=== PATIENT | female | born 1980 | race Caucasian/White ===

== ENCOUNTER 2018-02-21 10:01 | Emergency (ER) | payer SELFPAY ==
[~2018-02-21] VITALS: Ht 175.3 cm; Wt 91.2 kg
[~2018-02-21 10:01] MED LIST: ALPR0.5T PO; ASPI-630 PO; ATOR10TA60 PO; CANA300T PO; HYDR-2679 PO; INSU200I SQ; LINA1TAB5 PO; LOSA50TA7 PO
[2018-02-21 10:09] VITALS: BP 157/92
--- NOTE | 2018-02-21 11:07 | RAD ---
Right hand, 3 views, 02/21/2018: HISTORY: Fall, pain and bruising No fracture or dislocation is identified. The soft tissues are unremarkable. IMPRESSION: No acute right hand abnormality is detected. Right wrist, 3 views, 02/21/2018: There is deformity of the distal ulnar shaft compatible with an old healed fracture. No acute fracture or dislocation is identified. The soft tissues are unremarkable. IMPRESSION: No acute right wrist abnormality is detected. Electronically signed by: Misha Granados MD (02/21/2018 11:04 AM) [facility]
--- NOTE | 2018-02-21 11:08 | RAD ---
Right forearm, 2 views, 02/21/2018: HISTORY: Fall, pain No acute fracture or bony abnormality is detected. There is an old healed distal ulnar shaft fracture. IMPRESSION: No acute bony abnormality is detected. Electronically signed by: Misha Granados MD (02/21/2018 11:04 AM) [facility]
[2018-02-21] MEDS ORDERED: IBUP-1060 PO (11:52)
--- NOTE | 2018-02-21 11:59 | PHYS DOC ---
Past Medical History Past Medical History: Diabetes-Type II, High Cholesterol Past Surgical History: Tonsillectomy Alcohol Use: Occasionally Drug Use: Marijuana Adult General Chief Complaint Chief Complaint: HAND PROBLEM HPI HPI Patient is a 37 year old female who presents with fall. Patient was in the shower is morning when she had a mechanical fall. She landed hard on the right wrist and also states she struck the bridge of her nose. She did not have loss of consciousness. She presents to the ER complaining of pain in those areas. No nausea or vomiting. No vision changes. Review of Systems Review of Systems Constitutional: Denies fever Eyes: Denies change in visual acuity HENT: Denies nasal congestion Respiratory: Denies cough or shortness of breath Cardiovascular: No additional information not addressed in HPI Musculoskeletal: Denies back pain Integument: Denies rash or skin lesions All other systems were reviewed and found to be within normal limits, except as documented in this note. Allergies Allergies Allergies Coded Allergies Type Severity Reaction Last Updated Verified No Known Drug Allergies 02/24/14 No Physical Exam Physical Exam Constitutional: Well developed, well nourished, no acute distress, non-toxic appearance HENT: Normocephalic, very mild swelling about the bridge of the nose, bilateral external ears normal, oropharynx moist Eyes: PERRLA, EOMI Neck: Normal range of motion, no tenderness Cardiovascular:Heart rate regular rhythm Lungs & Thorax: Bilateral breath sounds clear to auscultation Abdomen: Bowel sounds normal, soft, no tenderness, no masses, no pulsatile masses. [] Skin: Warm, dry, no erythema, no rash. [] Back: No tenderness, no CVA tenderness. [] Extremities: No tenderness, no cyanosis, no clubbing, ROM intact, no edema. [] Neurologic: Alert and oriented X 3, normal motor function, normal sensory function, no focal deficits noted. [] Psychologic: Affect normal, judgement normal, mood normal. [] Current Patient Data Vital Signs Vital Signs Date Time Temp Pulse Resp B/P (MAP) Pulse Ox O2 Delivery O2 Flow Rate FiO2 02/21/18 10:09 98.1 77 18 157/92 (113) 98 Room Air 98.1 EKG EKG [] Radiology/Procedures Radiology/Procedures [] Course & Med Decision Making Course & Med Decision Making Pertinent Labs and Imaging studies reviewed. (See chart for details) Patient was evaluated in the emergency department after a traumatic injury to the right hand and wrist. X-rays did not reveal any acute new fractures although she did have a prior old fracture. Her physical exam of the hand is otherwise unremarkable. There was a small amount of ecchymosis on the right small finger but brisk capillary refill and sensation to light touch was intact in all dermatomes. The patient had a lot of apprehension due to comfort. For this reason, she was placed in a splint. She was advised to wear for the next 5 days or until her pain is improved. She was discharged home with ibuprofen and encouraged to follow-up with her primary care doctor. The patient did strike her nose when she fell. She had some concerns about a possible nasal fracture. On physical exam, she had no septal hematoma. Patient was recommended to follow up again with her primary care doctor and use [id number] decongestants as needed. Dragon Disclaimer Dragon Disclaimer This electronic medical record was generated, in whole or in part, using a voice recognition dictation system. Departure Departure Impression: Primary Impression: Contusion of wrist, right Disposition: 01 HOME, SELF-CARE Condition: GOOD Patient Instructions: Contusion, [id number] Scripts Ibuprofen (IBUPROFEN) 800 Mg Tablet 800 MG PO PRN TID PRN for PAIN, #30 TAB take with food or milk to avoid upsetting stomach Prov: AMINATA WOOTEN DO 02/21/18 AMINATA WOOTEN DO Feb 21, 2018 11:59
== END 2018-02-21 12:15 | disposition home or self-care (01) ==
LOC: ER 10:01
DX: S60.211A Contusion of right wrist, initial encounter (principal); E11.9 Type 2 diabetes mellitus without complications; E78.00 Pure hypercholesterolemia, unspecified; Z90.89 Acquired absence of other organs; W18.30XA Fall on same level, unspecified, initial encounter; Y93.89 Activity, other specified; Y92.89 Other specified places as the place of occurrence of the external cause; Y99.8 Other external cause status
CPT/HCPCS: 29125; 73090; 73110; 73130; 99284

== ENCOUNTER 2019-11-27 12:17 | Emergency (ER) | payer OTHER ==
[~2019-11-27 12:17] MED LIST changes: +IBUP-1060 PO; +LOSA-73 PO; -LOSA50TA7 PO
[2019-11-27] MEDS ORDERED: METF100010 PO (16:12)
[2019-11-29] MEDS ORDERED: CEPH-264 PO (08:49)
== END 2019-11-27 13:46 | disposition left against medical advice (07) ==
LOC: ER 12:17
DX: R10.9 Unspecified abdominal pain (principal); R50.9 Fever, unspecified; R05 Cough; Z53.21 Procedure and treatment not carried out due to patient leaving prior to being seen by health care provider
CPT/HCPCS: 82962

== ENCOUNTER 2019-11-27 13:46 | Inpatient (IN) | payer OTHER ==
[~2019-11-27] VITALS: Ht 175.3 cm; Wt 95.5 kg
[2019-11-27] MEDS: IV NORMAL SALINE 1000ML BAG 1,000 ML IV SCH (14:30)
[2019-11-27] MEDS ORDERED: HYDROcodone/APAP 5/325MG 1 TAB TABLET PO PRN (14:45)
[2019-11-27 15:00] VITALS: BP 171/74
--- NOTE | 2019-11-27 15:13 | PDOC2 ---
GI CONSULT Date of Service: DATE: 11/27/19 TIME: 14:59 Reason For Consult: abd pain HPI: HPI: 39 y/o female directly admitted. Ill since Tuesday with a variety of symptoms including night sweats, fever (says 99.4 at home), upper abdominal pain (constant "like a bruising" - awoke from sleep a couple nights ago, no change w/ eating) sometimes wrapping to back, occasional LLQ pain (occurs randomly, no change w/ stooling), less frequent/smaller soft stools, brain fog, and flushing. Was seen at [facility] at the [facility] and told blood work and CT of abdomen were unremarkable. Typically no issues w/ reflux but has been having some indigestion over the past couple days. Denies dysphagia, n/v, diarrhea, constipation, hematochezia, melena, and weight loss. No previous EGD or colonoscopy. H/o fatty liver on past US. No GB, pancreas, or PUD history. H/o arthritis and migraines on PRN hydrocodone, ibuprofen, and ASA. Has "some type of autoimmune disease" but testing inconclusive. Mentions RA, also mentions mother and sister have lupus. PMH: PMH: suspected autoimmune disease, anxiety, HLD, DM, migraines FH: Family History: CAD, CVA, Other (mother and sister have lupus) Social History: Smoke: Quit ALCOHOL: occassional ROS: GEN: +fever +chills HEENT: Denies blurred vision, sore throat CV: +chest pain RESP: +shortness of breath GI: Per HPI : Denies hematuria, dysuria ENDO: Denies weight changes NEURO: Denies confusion, dizziness MSK: +arthritis pain SKIN: Denies jaundice, pruritus Vitals: Vitals: Please see EMR - nurse reports afebrile. Labs: Labs: Pending. Allergies: Coded Allergies: No Known Drug Allergies (Unverified , 02/24/14) PE: GEN: NAD - sitting on bed, talking w/ mother on facetime, eating chicken and green beans HEENT: Atraumatic, PERRL LUNGS: CTAB HEART: RRR ABD: NABS, S/ND, does not seem particularly tender - perhaps mildly in epigastrium EXTREMITY: No edema SKIN: cheeks erythematous NEURO/PSYCH: A & O 3 A/P: A/P: Fever/sweats/flushing, abd pain, heartburn, change in bowel habits H/o fatty liver H/o migraines and arthritis R/o COVID-19 -- Await labs. ?need for IV antibiotics Check abd US r/o GB issue. Start PPI. DL LYLES Nov 27, 2019 15:13
[2019-11-27] MEDS: HYDROcodone/APAP 5/325MG 1 TAB TABLET PO PRN ×2 (15:15→21:58)
[2019-11-27] MEDS: CIPROFLOXACIN 400MG PREMIX 200 ML IV SCH (15:15)
--- NOTE | 2019-11-27 15:49 | RAD ---
Single view of the chest. 11/27/2019 2:24 PM Indication: Reason: PUI, FEVER, CHILLS / Spl. Instructions: / History: Comparison: Chest radiograph January 2016 Findings: There is no focal consolidation. There is no pleural effusion or pneumothorax. The cardiomediastinal silhouette and pulmonary vasculature are within normal limits. No acute osseous abnormalities are seen. Impression: No evidence of acute cardiopulmonary process. Electronically signed by: Pedro Clement MD (11/27/2019 3:47 PM) [id number]
[2019-11-27 15:56] LABS: BASO # 0.1 x10^3/uL (0.0-0.2); BASO % 1 % (0-3); EOS # 0.1 x10^3/uL (0.0-0.7); EOS % 1 % (0-3); HEMATOCRIT 42.7 % (36.0-47.0); LYMPH # 2.8 x10^3/uL (1.0-4.8); LYMPH % 28 % (24-48); MEAN CORPUSCULAR HEMOGLOBIN 33 pg (25-35); MEAN CORPUSCULAR HGB CONC 35 g/dL (31-37); MEAN CORPUSCULAR VOLUME 95 fL (79-100); MONO # 0.5 x10^3/uL (0.0-1.1); MONO % 5 % (0-9); NEUT # 6.4 x10^3/uL (1.8-7.7); NEUT % 65 % (31-73); PLATELET COUNT 255 x10^3/uL (140-400); RED BLOOD COUNT 4.49 x10^6/uL (3.50-5.40); RED CELL DISTRIBUTION WIDTH 12.1 % (11.5-14.5); WHITE BLOOD COUNT 9.9 x10^3/uL (4.0-11.0)
[2019-11-27 15:59] LABS: CALCIUM 8.9 mg/dL (8.5-10.1); CREATININE 0.7 mg/dL (0.6-1.0); GFR 93.6; POTASSIUM 3.9 mmol/L (3.5-5.1)
[2019-11-27 16:04] LABS: ALBUMIN/GLOBULIN RATIO 1.1 (1.0-1.7); TOTAL BILIRUBIN 0.4 mg/dL (0.2-1.0); TOTAL PROTEIN 7.6 g/dL (6.4-8.2)
[2019-11-27] MEDS ORDERED: METF100010 PO (16:12)
[2019-11-27] MEDS ORDERED: ALPRAZolam 0.5 MG TABLET PO PRN (16:15)
[2019-11-27] MEDS ORDERED: IBUPROFEN 400 MG TABLET. PO PRN (16:30)
[2019-11-27] MEDS: metFORMIN 500 MG TABLET PO SCH (17:00)
--- NOTE | 2019-11-27 17:17 | PDOC ---
Provider Note Provider Note H&P dictated.#[id number].Pt seen in the office and admitted. Justicifation of Admission Dx: Justifications for Admission: Justification of Admission Dx: Yes Sepsis: Infection BALTA SCHMITT MD Nov 27, 2019 17:17
--- NOTE | 2019-11-27 18:30 | EKG ---
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
--- NOTE | 2019-11-27 18:54 | HP ---
ADMIT DATE: 11/27/2019 REASON FOR ADMISSION TO THE HOSPITAL: Fever, chills, abdominal pain, possible COVID infection. HISTORY OF PRESENT ILLNESS: The patient is a 39-year-old female patient known to me. She has a history of diabetes, hypertension, migraines, and she was not feeling well for the last 2-3 days, night sweats, fever, abdominal pain, cramping and variety of symptoms including flushing brain fog as well as decreased stools. The patient went to the [facility] Emergency Room at the [facility]. Yesterday, had a CT scan and blood test and it was told unremarkable. I do not have the results with me. She did not bring the results, could not access the results. The patient was seen in the office today and she has been shivering and with chills badly it was decided to admit to the hospital for further investigations. The patient was very tender in the abdomen and possible diverticulitis was another differential diagnosis PAST MEDICAL HISTORY: Has diabetes, proteinuria, migraine headaches, anxiety. FAMILY HISTORY: Positive for lupus in the sister. Mom had sudden cardiac event, but she survived, she has a defibrillator. Strokes, diabetes in grandparents. ALLERGIES: No known allergies. SOCIAL HISTORY: Quit smoking, social alcohol. Denies any street drugs. REVIEW OF SYSTEMS: Fever, chills, abdominal pain, shortness of breath, and problems with diarrhea and constipation. Rest of the 14-system was reviewed and negative. PHYSICAL EXAMINATION: VITAL SIGNS: At the time of admission shows a temperature 98, pulse 69, respirations 18, blood pressure 171/74, 98 on room air. HEENT: Head is atraumatic. Pupils equal. Oral cavity: No congestion. NECK: Supple. Thyroid not enlarged. JVD not elevated. CHEST: Symmetrical. CARDIOVASCULAR: S1, S2. LUNGS: Clear to auscultation. ABDOMEN: Soft, bowel sounds are present. Slight tender in the left lower quadrant to deep palpation. No rebound. Bowel sounds are present. EXTERNAL GENITALIA: No Cerna. RECTAL: Deferred. EXTREMITIES: No calf tenderness, no edema. Pulses 1+. NEUROLOGIC: Moving all extremities. LABORATORY DATA: Shows a white count 10, hemoglobin 15, platelets 255. Electrolytes of sodium 139, potassium 3.9, chloride 101, bicarbonate 29, anion gap 9, BUN 13, creatinine 0.7, glucose 181. LFTs, amylase and lipase was normal. Urine is pending. Chest x-ray negative. The patient had a CT scan of the abdomen at [facility] Emergency Room. We will try to get the report, reported negative. FINAL IMPRESSION: 1. Chills with fever. 2. Possible suspect COVID. 3. Abdominal pain, possible diverticulitis. 4. Diabetes. 5. Hypertension. 6. History of migraines. PLAN: At this time, admit to hospital, hydrate with IV fluids. Blood culture. Start on broad-spectrum antibiotic, Cipro and Flagyl for possible diverticulitis and further recommendation for a GI consult, ID consult. If next 24 hours, does not look like any bacterial infection, we can discontinue the antibiotics. COVID-19 test was done. BALTA SCHMITT MD DR: GET/thong JOB#: [id number] / [id number]
[2019-11-27 19:00] VITALS: BP 166/80
[2019-11-27 19:38] LABS: BILIRUBIN,URINE NEGATIVE (NEG); CLARITY,URINE CLEAR; COLOR,URINE YELLOW; NITRITE,URINE NEGATIVE (NEG); PH,URINE 7.5 (<5.0-8.0); PROTEIN,URINE NEGATIVE (NEG-TRACE)
[2019-11-27 19:45] LABS: BACTERIA,URINE MODERATE /HPF (0-FEW); RBC,URINE 0 /HPF (0-2); SQUAMOUS EPITHELIAL CELL,UR MOD /LPF
[2019-11-27 19:46] LABS: AMORPHOUS SEDIMENT,UR PRESENT /HPF
[2019-11-27] MEDS ORDERED: ATORVASTATIN CALCIUM 10 MG TABLET. PO SCH (21:00)
[2019-11-27 23:00] VITALS: BP 132/65
[2019-11-28] VITALS (7 sets, daily range): BP systolic 114–143; BP diastolic 59–74
[2019-11-28 04:36] LABS: BASO % 0 % (0-3); EOS # 0.2 x10^3/uL (0.0-0.7); EOS % 2 % (0-3); HEMATOCRIT 39.6 % (36.0-47.0); HEMOGLOBIN 13.6 g/dL (12.0-15.5); LYMPH % 41 % (24-48); MEAN CORPUSCULAR HEMOGLOBIN 33 pg (25-35); MEAN CORPUSCULAR HGB CONC 35 g/dL (31-37); MEAN CORPUSCULAR VOLUME 96 fL (79-100); MONO # 0.7 x10^3/uL (0.0-1.1); MONO % 7 % (0-9); NEUT # 4.8 x10^3/uL (1.8-7.7); NEUT % 50 % (31-73); PLATELET COUNT 229 x10^3/uL (140-400); RED BLOOD COUNT 4.14 x10^6/uL (3.50-5.40); RED CELL DISTRIBUTION WIDTH 12.3 % (11.5-14.5); WHITE BLOOD COUNT 9.7 x10^3/uL (4.0-11.0)
[2019-11-28] MEDS: CIPROFLOXACIN 400MG PREMIX 200 ML IV SCH (04:41)
[2019-11-28] MEDS: IV NORMAL SALINE 1000ML BAG 1,000 ML IV SCH ×3 (04:42→20:30)
[2019-11-28 05:27] LABS: CALCIUM 7.9 mg/dL (8.5-10.1); CREATININE 0.8 mg/dL (0.6-1.0); GFR 80.3; POTASSIUM 3.9 mmol/L (3.5-5.1)
[2019-11-28 05:28] LABS: CHOLESTEROL/HDL RATIO 5.1
--- NOTE | 2019-11-28 07:56 | EKG ---
[facility] [address] [place] [address] Test Date: 2019-11-28 Test Time: 07:47:08 Pat Name: ARTURO ARVIZU Department: Room: 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
--- NOTE | 2019-11-28 08:43 | PDOC2 ---
CRISTOPHER MONTGOMERY COST ANALYST 11/28/19 0843: CARDIAC CONSULT DATE OF CONSULT Date of Consult DATE: 11/28/19 TIME: 08:33 REASON FOR CONSULT Reason for Consult: Abnormal EKG REFERRING PHYSICIAN Referring Physician: Albert SOURCE Source: Chart review HISTORY OF PRESENT ILLNESS HISTORY OF PRESENT ILLNESS This is a 39 yo female admitted for multiple complains. Reports of upper abdominal pain with some nausea. Described it as bruise below rib cage but also has some radiating left chest to back below between shoulder blades. Also noted with intermittent dizziness, shortness of breath and occasional palpitations but no arrhythmias. She was also noted to becoming dizzy and some spots in her visual field with positional changes but no FERNANDEZ as she has hx of migraine with aura. No OCP but does have mirena IUD. At times feels hot flash and night sweats. Reports of chills and fever yesterday. She has significant family hx of arrhythmias and heart disease. So far no syncope. No falls or any recent injury. PAST MEDICAL HISTORY Cardiovascular: Hyperlipidemia CENTRAL NERVOUS SYSTEM: Migraine Psych: Anxiety Musculoskeletal: low back pain, Osteoarthritis (spine) ENT: No pertinent hx Endocrine: Diabetes (2) PAST SURGICAL HISTORY Past Surgical History: Tonsillectomy FAMILY HISTORY Family History: Coronary Artery Disease, Diabetes, Stroke, Other (sister has lupus) SOCIAL HISTORY Smoke: Quit ALCOHOL: rare Drugs: None Lives: with Family CURRENT MEDICATIONS CURRENT MEDICATIONS Current Medications Medications (Trade) Dose Ordered Sig/Contreras Route PRN Reason Start Time Stop Time Status Last Admin Dose Admin Metronidazole 100 ml @ 100 mls/hr Q12HR IV 11/27/19 21:00 11/27/19 21:58 Ciprofloxacin/ Dextrose 200 ml @ 200 mls/hr Q12H IV 11/27/19 16:00 11/28/19 04:41 Sodium Chloride 1,000 ml @ 100 mls/hr Q10H IV 11/27/19 14:30 11/28/19 04:42 Acetaminophen/ Hydrocodone Bitart (Lortab 5/325) 2 tab PRN Q6HRS PRN PO PAIN 11/27/19 14:45 11/27/19 21:58 Alprazolam (Xanax) 0.5 mg PRN TID PRN PO ANXIETY 11/27/19 16:15 11/28/19 01:14 Atorvastatin Calcium (Lipitor) 10 mg HS PO 11/27/19 21:00 11/27/19 21:58 ALLERGIES ALLERGIES: Coded Allergies: topiramate (Verified Allergy, Intermediate, 11/29/19) ROS Review of System 14 point ROS evlauated with pertinent positives noted per HPI PHYSICAL EXAM PHYSICAL EXAM Deferred, preserving PPE, currently PUI, discussed exam with RN. General: Alert, Oriented X3, Cooperative, No acute distress HEENT: Atraumatic Lungs: Clear to auscultation, Other (CXR reviewed) Heart: Regular rate (SR) Abdomen: Soft Extremities: No edema Skin: No breakdown Neuro: Normal speech, Sensation intact Psych/Mental Status: Mental status NL MUSCULOSKELETAL: No deformity VITALS/I&O VITALS/I&O: Vital Signs Date Time Temp Pulse Resp B/P (MAP) Pulse Ox O2 Delivery O2 Flow Rate FiO2 11/27/19 23:00 98.6 65 18 132/65 (87) 95 Room Air 98.6 I & O 11/27/19 11/27/19 11/28/19 14:59 22:59 06:59 Intake Total 700 ml 100 ml Output Total 1100 ml Balance 700 ml -1000 ml LABS Lab: Laboratory Tests Test 11/27/19 15:45 11/27/19 17:00 11/27/19 22:00 11/27/19 22:37 White Blood Count 9.9 x10^3/uL (4.0-11.0) Red Blood Count 4.49 x10^6/uL (3.50-5.40) Hemoglobin 15.0 g/dL (12.0-15.5) Hematocrit 42.7 % (36.0-47.0) Mean Corpuscular Volume 95 fL (79-100) Mean Corpuscular Hemoglobin 33 pg (25-35) Mean Corpuscular Hemoglobin Concent 35 g/dL (31-37) Red Cell Distribution Width 12.1 % (11.5-14.5) Platelet Count 255 x10^3/uL (140-400) Neutrophils (%) (Auto) 65 % (31-73) Lymphocytes (%) (Auto) 28 % (24-48) Monocytes (%) (Auto) 5 % (0-9) Eosinophils (%) (Auto) 1 % (0-3) Basophils (%) (Auto) 1 % (0-3) Neutrophils # (Auto) 6.4 x10^3/uL (1.8-7.7) Lymphocytes # (Auto) 2.8 x10^3/uL (1.0-4.8) Monocytes # (Auto) 0.5 x10^3/uL (0.0-1.1) Eosinophils # (Auto) 0.1 x10^3/uL (0.0-0.7) Basophils # (Auto) 0.1 x10^3/uL (0.0-0.2) Sodium Level 139 mmol/L (136-145) Potassium Level 3.9 mmol/L (3.5-5.1) Chloride Level 101 mmol/L (98-107) Carbon Dioxide Level 29 mmol/L (21-32) Anion Gap 9 (6-14) Blood Urea Nitrogen 13 mg/dL (7-20) Creatinine 0.7 mg/dL (0.6-1.0) Estimated GFR (Cockcroft-Gault) 93.6 BUN/Creatinine Ratio 19 (6-20) Glucose Level 181 mg/dL (70-99) H Calcium Level 8.9 mg/dL (8.5-10.1) Total Bilirubin 0.4 mg/dL (0.2-1.0) Aspartate Amino Transferase (AST) 17 U/L (15-37) Alanine Aminotransferase (ALT) 45 U/L (14-59) Alkaline Phosphatase 48 U/L (46-116) Total Protein 7.6 g/dL (6.4-8.2) Albumin 4.0 g/dL (3.4-5.0) Albumin/Globulin Ratio 1.1 (1.0-1.7) Amylase Level 27 U/L (25-115) Lipase 144 U/L (73-393) Urine Collection Type Unknown Urine Color Yellow Urine Clarity Clear Urine pH 7.5 (<5.0-8.0) Urine Specific [place] 1.020 (1.000-1.030) Urine Protein Negative mg/dL (NEG-TRACE) Urine Glucose (UA) Negative mg/dL (NEG) Urine Ketones (Stick) Negative mg/dL (NEG) Urine Blood Negative (NEG) Urine Nitrite Negative (NEG) Urine Bilirubin Negative (NEG) Urine Urobilinogen Dipstick 1.0 mg/dL (0.2 mg/dL) Urine Leukocyte Esterase Small (NEG) Urine RBC 0 /HPF (0-2) Urine WBC 11-20 /HPF (0-4) Urine Squamous Epithelial Cells Mod /LPF Urine Amorphous Sediment Present /HPF Urine Bacteria Moderate /HPF (0-FEW) Urine Mucus Mod /LPF Troponin I Quantitative < 0.017 ng/mL (0.000-0.055) Glucose (Fingerstick) 188 mg/dL (70-99) H Test 11/28/19 04:00 11/28/19 07:59 White Blood Count 9.7 x10^3/uL (4.0-11.0) Red Blood Count 4.14 x10^6/uL (3.50-5.40) Hemoglobin 13.6 g/dL (12.0-15.5) Hematocrit 39.6 % (36.0-47.0) Mean Corpuscular Volume 96 fL (79-100) Mean Corpuscular Hemoglobin 33 pg (25-35) Mean Corpuscular Hemoglobin Concent 35 g/dL (31-37) Red Cell Distribution Width 12.3 % (11.5-14.5) Platelet Count 229 x10^3/uL (140-400) Neutrophils (%) (Auto) 50 % (31-73) Lymphocytes (%) (Auto) 41 % (24-48) Monocytes (%) (Auto) 7 % (0-9) Eosinophils (%) (Auto) 2 % (0-3) Basophils (%) (Auto) 0 % (0-3) Neutrophils # (Auto) 4.8 x10^3/uL (1.8-7.7) Lymphocytes # (Auto) 4.0 x10^3/uL (1.0-4.8) Monocytes # (Auto) 0.7 x10^3/uL (0.0-1.1) Eosinophils # (Auto) 0.2 x10^3/uL (0.0-0.7) Basophils # (Auto) 0.0 x10^3/uL (0.0-0.2) Sodium Level 139 mmol/L (136-145) Potassium Level 3.9 mmol/L (3.5-5.1) Chloride Level 105 mmol/L (98-107) Carbon Dioxide Level 27 mmol/L (21-32) Anion Gap 7 (6-14) Blood Urea Nitrogen 12 mg/dL (7-20) Creatinine 0.8 mg/dL (0.6-1.0) Estimated GFR (Cockcroft-Gault) 80.3 Glucose Level 124 mg/dL (70-99) H Calcium Level 7.9 mg/dL (8.5-10.1) L Troponin I Quantitative < 0.017 ng/mL (0.000-0.055) Triglycerides Level 137 mg/dL (0-150) Cholesterol Level 158 mg/dL (0-200) LDL Cholesterol, Calculated 100 mg/dL (0-100) VLDL Cholesterol, Calculated 27 mg/dL (0-40) Non-HDL Cholesterol Calculated 127 mg/dL (0-129) HDL Cholesterol 31 mg/dL (40-60) L Cholesterol/HDL Ratio 5.1 Thyroid Stimulating Hormone (TSH) 2.312 uIU/mL (0.358-3.74) Glucose (Fingerstick) 147 mg/dL (70-99) H Laboratory Tests 11/27/19 15:45 11/28/19 04:00 Laboratory Tests 11/27/19 15:45 11/28/19 04:00 ASSESSMENT/PLAN ASSESSMENT/PLAN 1. Abdominal pain/fever/nausea: GI following. Afebrile so far 2. PUI 3. Atypical CP with dyspnea 4. Abnormal EKG: EKG SR nonspecific ST-T wave changes and Q wave to inferior leads without acute changes by multiple comparisons of past EKG. 5. DM2 6. HLP: LDL at 100 7. Family hx of lupus and SCA(mother in her 50s unknown). CAD father, Son 17 yo recently noted with PSVT 8. Reported possible autoimmune disease 9. Presyncope/visual spots: aura? with aborted migraine? Defer to PCP Recommendations TTE if covid negative. Will obtain chest CTA to rule out PE Optimize statin Will consider for outpt MPI given significant cardiac risk factors and significant family hx. Secondary prevention measures. SHELLIE PENA MD 11/29/19 0748: CARDIAC CONSULT ASSESSMENT/PLAN ASSESSMENT/PLAN Late entry for 11/28/2019 Pt. seen and examined. Agree with above VISITOR SERVICES INFORMATION ASSISTANT note. CT negative. CRISTOPHER MONTGOMERY APRN Nov 28, 2019 08:43 SHELLIE PENA MD Nov 29, 2019 07:48
[2019-11-28] MEDS: PANTOPRAZOLE 40 MG TABLET.DR. PO SCH (08:55)
[2019-11-28] MEDS: metFORMIN 500 MG TABLET PO SCH (08:55)
--- NOTE | 2019-11-28 09:01 | PDOC ---
PROGRESS NOTES Date of Service: DATE: 11/28/19 TIME: 09:01 Objective Objective Vital Signs Date Time Temp Pulse Resp B/P (MAP) Pulse Ox O2 Delivery O2 Flow Rate FiO2 11/27/19 23:00 98.6 65 18 132/65 (87) 95 Room Air 98.6 Intake and Output 11/28/19 07:00 Intake Total 800 ml Output Total 1100 ml Balance -300 ml Intake Oral 800 ml Output Urine Total 1100 ml # Voids 2 Physical Exam MUSCULOSKELETAL: No deformity Comment Review of Relevant I have reviewed the following items feliciano (where applicable) has been applied. Labs Laboratory Tests Test 11/27/19 15:45 11/27/19 17:00 11/27/19 22:00 11/27/19 22:37 White Blood Count 9.9 x10^3/uL (4.0-11.0) Red Blood Count 4.49 x10^6/uL (3.50-5.40) Hemoglobin 15.0 g/dL (12.0-15.5) Hematocrit 42.7 % (36.0-47.0) Mean Corpuscular Volume 95 fL (79-100) Mean Corpuscular Hemoglobin 33 pg (25-35) Mean Corpuscular Hemoglobin Concent 35 g/dL (31-37) Red Cell Distribution Width 12.1 % (11.5-14.5) Platelet Count 255 x10^3/uL (140-400) Neutrophils (%) (Auto) 65 % (31-73) Lymphocytes (%) (Auto) 28 % (24-48) Monocytes (%) (Auto) 5 % (0-9) Eosinophils (%) (Auto) 1 % (0-3) Basophils (%) (Auto) 1 % (0-3) Neutrophils # (Auto) 6.4 x10^3/uL (1.8-7.7) Lymphocytes # (Auto) 2.8 x10^3/uL (1.0-4.8) Monocytes # (Auto) 0.5 x10^3/uL (0.0-1.1) Eosinophils # (Auto) 0.1 x10^3/uL (0.0-0.7) Basophils # (Auto) 0.1 x10^3/uL (0.0-0.2) Sodium Level 139 mmol/L (136-145) Potassium Level 3.9 mmol/L (3.5-5.1) Chloride Level 101 mmol/L (98-107) Carbon Dioxide Level 29 mmol/L (21-32) Anion Gap 9 (6-14) Blood Urea Nitrogen 13 mg/dL (7-20) Creatinine 0.7 mg/dL (0.6-1.0) Estimated GFR (Cockcroft-Gault) 93.6 BUN/Creatinine Ratio 19 (6-20) Glucose Level 181 mg/dL (70-99) Calcium Level 8.9 mg/dL (8.5-10.1) Total Bilirubin 0.4 mg/dL (0.2-1.0) Aspartate Amino Transf (AST/SGOT) 17 U/L (15-37) Alanine Aminotransferase (ALT/SGPT) 45 U/L (14-59) Alkaline Phosphatase 48 U/L (46-116) Total Protein 7.6 g/dL (6.4-8.2) Albumin 4.0 g/dL (3.4-5.0) Albumin/Globulin Ratio 1.1 (1.0-1.7) Amylase Level 27 U/L (25-115) Lipase 144 U/L (73-393) Urine Collection Type Unknown Urine Color Yellow Urine Clarity Clear Urine pH 7.5 (<5.0-8.0) Urine Specific [place] 1.020 (1.000-1.030) Urine Protein Negative mg/dL (NEG-TRACE) Urine Glucose (UA) Negative mg/dL (NEG) Urine Ketones (Stick) Negative mg/dL (NEG) Urine Blood Negative (NEG) Urine Nitrite Negative (NEG) Urine Bilirubin Negative (NEG) Urine Urobilinogen Dipstick 1.0 mg/dL (0.2 mg/dL) Urine Leukocyte Esterase Small (NEG) Urine RBC 0 /HPF (0-2) Urine WBC 11-20 /HPF (0-4) Urine Squamous Epithelial Cells Mod /LPF Urine Amorphous Sediment Present /HPF Urine Bacteria Moderate /HPF (0-FEW) Urine Mucus Mod /LPF Troponin I Quantitative < 0.017 ng/mL (0.000-0.055) Glucose (Fingerstick) 188 mg/dL (70-99) Test 11/28/19 04:00 11/28/19 07:59 White Blood Count 9.7 x10^3/uL (4.0-11.0) Red Blood Count 4.14 x10^6/uL (3.50-5.40) Hemoglobin 13.6 g/dL (12.0-15.5) Hematocrit 39.6 % (36.0-47.0) Mean Corpuscular Volume 96 fL (79-100) Mean Corpuscular Hemoglobin 33 pg (25-35) Mean Corpuscular Hemoglobin Concent 35 g/dL (31-37) Red Cell Distribution Width 12.3 % (11.5-14.5) Platelet Count 229 x10^3/uL (140-400) Neutrophils (%) (Auto) 50 % (31-73) Lymphocytes (%) (Auto) 41 % (24-48) Monocytes (%) (Auto) 7 % (0-9) Eosinophils (%) (Auto) 2 % (0-3) Basophils (%) (Auto) 0 % (0-3) Neutrophils # (Auto) 4.8 x10^3/uL (1.8-7.7) Lymphocytes # (Auto) 4.0 x10^3/uL (1.0-4.8) Monocytes # (Auto) 0.7 x10^3/uL (0.0-1.1) Eosinophils # (Auto) 0.2 x10^3/uL (0.0-0.7) Basophils # (Auto) 0.0 x10^3/uL (0.0-0.2) Sodium Level 139 mmol/L (136-145) Potassium Level 3.9 mmol/L (3.5-5.1) Chloride Level 105 mmol/L (98-107) Carbon Dioxide Level 27 mmol/L (21-32) Anion Gap 7 (6-14) Blood Urea Nitrogen 12 mg/dL (7-20) Creatinine 0.8 mg/dL (0.6-1.0) Estimated GFR (Cockcroft-Gault) 80.3 Glucose Level 124 mg/dL (70-99) Calcium Level 7.9 mg/dL (8.5-10.1) Troponin I Quantitative < 0.017 ng/mL (0.000-0.055) Triglycerides Level 137 mg/dL (0-150) Cholesterol Level 158 mg/dL (0-200) LDL Cholesterol, Calculated 100 mg/dL (0-100) VLDL Cholesterol, Calculated 27 mg/dL (0-40) Non-HDL Cholesterol Calculated 127 mg/dL (0-129) HDL Cholesterol 31 mg/dL (40-60) Cholesterol/HDL Ratio 5.1 Thyroid Stimulating Hormone (TSH) 2.312 uIU/mL (0.358-3.74) Glucose (Fingerstick) 147 mg/dL (70-99) Medications Current Medications Acetaminophen/ Hydrocodone Bitart (Lortab 5/325) 1 tab PRN Q6HRS PRN PO PAIN; Start 11/27/19 at 14:45 Acetaminophen/ Hydrocodone Bitart (Lortab 5/325) 2 tab PRN Q6HRS PRN PO PAIN Last administered on 11/27/19at 21:58; Start 11/27/19 at 14:45 Alprazolam (Xanax) 0.5 mg PRN TID PRN PO ANXIETY Last administered on 11/28/19at 01:14; Start 11/27/19 at 16:15 Atorvastatin Calcium (Lipitor) 10 mg HS PO Last administered on 11/27/19at 21:58; Start 11/27/19 at 21:00 Ciprofloxacin/ Dextrose 200 ml @ 200 mls/hr Q12H IV Last administered on 11/28/19at 04:41; Start 11/27/19 at 16:00 Ibuprofen (Motrin) 800 mg PRN Q8HRS PRN PO INFLAMMATION; Start 11/27/19 at 16:30 Metformin HCl (Glucophage) 1,000 mg BIDWMEALS PO Last administered on 11/28/19at 08:55; Start 11/27/19 at 17:00 Metronidazole 100 ml @ 100 mls/hr Q12HR IV Last administered on 11/28/19at 08:54; Start 11/27/19 at 21:00 Pantoprazole Sodium (Protonix) 40 mg DAILYAC PO Last administered on 11/28/19at 08:55; Start 11/28/19 at 07:30 Sodium Chloride 1,000 ml @ 100 mls/hr Q10H IV Last administered on 11/28/19at 04:42; Start 11/27/19 at 14:30 Vitals/I & O Vital Sign - Last 24 Hours 11/27/19 11/27/19 11/27/19 11/27/19 15:00 15:15 16:15 19:00 Temp 98.1 98.0 98.1 98.0 Pulse 69 70 Resp 18 18 B/P (MAP) 171/74 (106) 166/80 (108) Pulse Ox 98 96 O2 Delivery Room Air Room Air Room Air Room Air 11/27/19 11/27/19 22:00 23:00 Temp 98.6 98.6 Pulse 65 Resp 18 B/P (MAP) 132/65 (87) Pulse Ox 95 O2 Delivery Room Air Room Air Intake and Output 11/27/19 11/27/19 11/28/19 15:00 23:00 07:00 Intake Total 700 ml 100 ml Output Total 1100 ml Balance 700 ml -1000 ml Justicifation of Admission Dx: Justifications for Admission: Justification of Admission Dx: Yes Sepsis: Infection BALTA SCHMITT MD Nov 28, 2019 09:01
[2019-11-28] MEDS ORDERED: ONDANSETRON PF 4 MG/2 ML VIAL. IVP PRN (10:00)
--- NOTE | 2019-11-28 11:27 | PDOC ---
Date of Service: DATE: 11/28/19 TIME: 11:23 Subjective: Subjective: Has chills. Now says no stool since . Again describes upper abdominal pain, says LLQ pain started today. Objective: Vital Signs: Vital Signs Date Time Temp Pulse Resp B/P (MAP) Pulse Ox O2 Delivery O2 Flow Rate FiO2 11/28/19 10:00 98 Room Air 11/28/19 07:30 97.9 56 16 143/60 (87) 97.9 Labs: Laboratory Tests Test 11/27/19 15:45 11/27/19 17:00 11/27/19 22:00 11/27/19 22:37 White Blood Count 9.9 x10^3/uL Red Blood Count 4.49 x10^6/uL Hemoglobin 15.0 g/dL Hematocrit 42.7 % Mean Corpuscular Volume 95 fL Mean Corpuscular Hemoglobin 33 pg Mean Corpuscular Hemoglobin Concent 35 g/dL Red Cell Distribution Width 12.1 % Platelet Count 255 x10^3/uL Neutrophils (%) (Auto) 65 % Lymphocytes (%) (Auto) 28 % Monocytes (%) (Auto) 5 % Eosinophils (%) (Auto) 1 % Basophils (%) (Auto) 1 % Neutrophils # (Auto) 6.4 x10^3/uL Lymphocytes # (Auto) 2.8 x10^3/uL Monocytes # (Auto) 0.5 x10^3/uL Eosinophils # (Auto) 0.1 x10^3/uL Basophils # (Auto) 0.1 x10^3/uL Sodium Level 139 mmol/L Potassium Level 3.9 mmol/L Chloride Level 101 mmol/L Carbon Dioxide Level 29 mmol/L Anion Gap 9 Blood Urea Nitrogen 13 mg/dL Creatinine 0.7 mg/dL Estimated GFR (Cockcroft-Gault) 93.6 BUN/Creatinine Ratio 19 Glucose Level 181 mg/dL Calcium Level 8.9 mg/dL Total Bilirubin 0.4 mg/dL Aspartate Amino Transf (AST/SGOT) 17 U/L Alanine Aminotransferase (ALT/SGPT) 45 U/L Alkaline Phosphatase 48 U/L Total Protein 7.6 g/dL Albumin 4.0 g/dL Albumin/Globulin Ratio 1.1 Amylase Level 27 U/L Lipase 144 U/L Urine Collection Type Unknown Urine Color Yellow Urine Clarity Clear Urine pH 7.5 Urine Specific [place] 1.020 Urine Protein Negative mg/dL Urine Glucose (UA) Negative mg/dL Urine Ketones (Stick) Negative mg/dL Urine Blood Negative Urine Nitrite Negative Urine Bilirubin Negative Urine Urobilinogen Dipstick 1.0 mg/dL Urine Leukocyte Esterase Small Urine RBC 0 /HPF Urine WBC 11-20 /HPF Urine Squamous Epithelial Cells Mod /LPF Urine Amorphous Sediment Present /HPF Urine Bacteria Moderate /HPF Urine Mucus Mod /LPF Troponin I Quantitative < 0.017 ng/mL Glucose (Fingerstick) 188 mg/dL Test 11/28/19 04:00 11/28/19 07:59 White Blood Count 9.7 x10^3/uL Red Blood Count 4.14 x10^6/uL Hemoglobin 13.6 g/dL Hematocrit 39.6 % Mean Corpuscular Volume 96 fL Mean Corpuscular Hemoglobin 33 pg Mean Corpuscular Hemoglobin Concent 35 g/dL Red Cell Distribution Width 12.3 % Platelet Count 229 x10^3/uL Neutrophils (%) (Auto) 50 % Lymphocytes (%) (Auto) 41 % Monocytes (%) (Auto) 7 % Eosinophils (%) (Auto) 2 % Basophils (%) (Auto) 0 % Neutrophils # (Auto) 4.8 x10^3/uL Lymphocytes # (Auto) 4.0 x10^3/uL Monocytes # (Auto) 0.7 x10^3/uL Eosinophils # (Auto) 0.2 x10^3/uL Basophils # (Auto) 0.0 x10^3/uL Sodium Level 139 mmol/L Potassium Level 3.9 mmol/L Chloride Level 105 mmol/L Carbon Dioxide Level 27 mmol/L Anion Gap 7 Blood Urea Nitrogen 12 mg/dL Creatinine 0.8 mg/dL Estimated GFR (Cockcroft-Gault) 80.3 Glucose Level 124 mg/dL Calcium Level 7.9 mg/dL Troponin I Quantitative < 0.017 ng/mL Triglycerides Level 137 mg/dL Cholesterol Level 158 mg/dL LDL Cholesterol, Calculated 100 mg/dL VLDL Cholesterol, Calculated 27 mg/dL Non-HDL Cholesterol Calculated 127 mg/dL HDL Cholesterol 31 mg/dL Cholesterol/HDL Ratio 5.1 Thyroid Stimulating Hormone (TSH) 2.312 uIU/mL Glucose (Fingerstick) 147 mg/dL PE: GEN: shivering, in COVID isolation LUNGS:clear HEART: RRR ABD: non-distended NEURO/PSYCH: A & O 3 A/P: Chills Abd pain, change in bowel habits R/o COVID-19 -- Await COVID testing and US. Continue PPI, add Miralax. Justicifation of Admission Dx: Justifications for Admission: Justification of Admission Dx: Yes Sepsis: Infection DL LYLES Nov 28, 2019 11:27
[2019-11-28] MEDS ORDERED: CONTRAST GIVEN. MC PRN (12:45)
[2019-11-28] MEDS ORDERED: IOHEXOL 350 MG/ML 100 ML VIAL. IV ONE (13:00)
--- NOTE | 2019-11-28 13:06 | CONS ---
DATE OF CONSULTATION: 11/28/2019 REFERRING PHYSICIAN: Lucita Price MD REASON FOR CONSULTATION: Febrile illness, possible viral etiology. HISTORY OF PRESENT ILLNESS: A 39-year-old female directly admitted from Dr. Price's office who started feeling ill since last Tuesday. She started having chills, night sweats, fever 99.4, upper abdominal pain, constant like a sensation of bruising, with no history of prior injury, now having left lower quadrant pain with no stools for the last 4 days. She also has flushing. She presented herself to [facility] and got blood work and CT abdomen, which were reported unremarkable. She was told to follow up with Dr. Price where she presented in his office yesterday, at which time she started having chills/had flushed, night sweats and abdominal pain, so was admitted for further evaluation and treatment. COVID is pending at this time. She denies any sick contact. She lives with her 2 sons, 15 and 17. 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 No sick exposure. She denies any nausea, vomiting. Does have some headache. Denies any sore throat. Does have some nausea, no vomiting. Denies any blood in stool. States has increased frequency,occasional dysuria ,no hematuria. Denies any recent procedure. She remains afebrile on room air. White count was normal. Troponin was normal. The patient was started on Cipro and metronidazole. Chest x-ray was normal. COVID is pending. The patient today feels about the same, still has shivers. She feels like SHE IS ALLERGIC TO POSSIBLY METFORMIN. PAST MEDICAL HISTORY: Anxiety, hyperlipidemia, diabetes, migraine, suspected autoimmune disease. FAMILY HISTORY: As per HPI. SOCIAL HISTORY: Denies smoking, ETOH, or illicit drug use. Lives with her 2 sons, 15 and 17. 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 No sick contact. REVIEW OF SYSTEMS: Negative except for above in HPI. ALLERGIES: TOPIRAMATE. PHYSICAL EXAMINATION: VITAL SIGNS: Temperature 97.9, pulse 56, respirations 16, blood pressure 143/60, oxygen saturation 98% on room air. GENERAL: Alert, awake female, shivering when I examined her,mildly anxious, appears flushed. HEENT: Flushed skin, no icterus.no thrush, no oral lesions, NECK: Supple, no JVD. LUNGS: Clear bilaterally. HEART: S1, S2.no murmurs ABDOMEN: Soft, nontender, nondistended, no rebound, no guarding. EXTREMITIES: No edema, no cyanosis. DERMATOLOGIC: Warm, dry. No generalized rash. NEUROLOGIC: Alert and oriented x 3, grossly nonfocal. PSYCHIATRIC: Cooperative, appropriate mood and affect, appears slightly anxious. LABORATORY DATA: WBC 9.7, hemoglobin 13.6, hematocrit 39.6, platelets 229. Sodium 139, potassium 3.6, chloride 105, bicarbonate 27, BUN 12, creatinine 0.8, glucose 124, calcium 7.9. Troponin normal. TSH normal. Glucose 147. COVID-19 pending. DIAGNOSTICS: Chest x-ray, no evidence of cardiopulmonary process. MICROBIOLOGY: Urine culture and blood culture pending. IMPRESSION: 1. Subjective fever, night sweats, flushing, chills, etiology unclear. Could be vasculitis 2. Pyuria. Urine culture negative so far. 3. Abdominal pain. 4. History of migraine and arthritis. 5. Rule out COVID. 6. History of underlying autoimmune disorder RECOMMENDATIONS: 1. Discontinue Cipro and Flagyl. 2. Dose ceftriaxone once pending urine culture. 3. Follow up cultures and lab. 4. Continue supportive care. 5. Maintain aspiration precaution. 6. Discussed with nursing staff. Thank you, Dr. Price, for consulting Infectious Disease to participate in this patient's care. If you have any questions, do not hesitate to contact me. ARIANNA GARCÍA MD DR: KEIKO/thong JOB#: [id number] / [id number] GUERITA
[2019-11-28] MEDS: POLYETHYLENE GLYCOL 3350 17 GM PACKET. PO SCH (13:13)
[2019-11-28] MEDS ORDERED: cefTRIAXone IV Push 2 GM VIAL. IVP SCH (14:00)
--- NOTE | 2019-11-28 15:11 | RAD ---
Chest CTA History: Chest pain, dyspnea Technique: After bolus of intravenous contrast, CT imaging was performed of the chest. Multiplanar reconstruction images to include MIP reconstruction images are submitted. Exposure: One or more of the following individualized dose reduction techniques were utilized for this examination: 1. Automated exposure control 2. Adjustment of the mA and/or kV according to patient size 3. Use of iterative reconstruction technique. Comparison: None Findings: There is motion degradation. No central pulmonary embolism is identified, limited evaluation of the smaller and more distal branches due to motion and suboptimal contrast opacification of the pulmonary arteries. There is no pericardial pleural fluid, pneumothorax, or lobar infiltrate. Thoracic aortic caliber is within normal limits, no intraluminal flap. Major airways are patent. There is a small 2 to 3 mm subpleural left upper lobe nodule posteriorly image 30 series 3. There is likely hepatic steatosis. No significantly enlarged nodes identified of the chest, multiple small bilateral axillary nodes. Impression: 1. No central pulmonary embolism is identified, limited evaluation of the more distal and smaller branches on this exam. 2. There is likely hepatic steatosis. Electronically signed by: Vish Cowart MD (11/28/2019 3:09 PM) [id number]
--- NOTE | 2019-11-28 17:38 | NUR ---
SW following. Reviewed chart and discussed with RN. Pt from home, room air, no PT/OT needs. Pt on IV Cipro. Pt COVID pending. SW to follow.
[2019-11-28] MEDS: LACTOBACILLUS RHAMNOSUS GG 1 CAPSULE. PO SCH (20:35)
[2019-11-28] MEDS ORDERED: ATORVASTATIN CALCIUM 10 MG TABLET. PO SCH (21:00)
--- NOTE | 2019-11-28 21:20 | PDOC ---
PROGRESS NOTES Date of Service: DATE: 11/28/19 TIME: 21:19 Subjective Subjective feels better ,no fever Objective Objective Vital Signs Date Time Temp Pulse Resp B/P (MAP) Pulse Ox O2 Delivery O2 Flow Rate FiO2 11/28/19 21:10 Room Air 11/28/19 15:00 97.6 55 17 121/63 (82) 97 97.6 Intake and Output 11/28/19 07:00 Intake Total 800 ml Output Total 1100 ml Balance -300 ml Intake Oral 800 ml Output Urine Total 1100 ml # Voids 2 Physical Exam Abdomen: Soft Heart: Regular rate (SR) Extremities: No edema General: Alert, Oriented X3, Cooperative, No acute distress HEENT: Atraumatic Lungs: Clear to auscultation, Other (CXR reviewed) MUSCULOSKELETAL: No deformity Neuro: Normal speech, Sensation intact Psych/Mental Status: Mental status NL Skin: No breakdown Assessment Assessment FINAL IMPRESSION: 1. Chills with fever. 2. Possible suspect COVID. 3. Abdominal pain, possible diverticulitis. 4. Diabetes. 5. Hypertension. 6. History of migraines. PLAN: covid -neg suggestive of uti Ct scan fron [facility] for abd pathology. id consult today Gi seen sono liver. ekg t wave inversion ,cardology consult. wbc and labs ok. At this time, admit to hospital, hydrate with IV fluids. Blood culture. Start on broad-spectrum antibiotic, Cipro and Flagyl for possible diverticulitis and further recommendation for a GI consult, ID consult. If next 24 hours, does not look like any bacterial infection, we can discontinue the antibiotics. COVID-19 test was done. Comment Review of Relevant I have reviewed the following items feliciano (where applicable) has been applied. Labs Laboratory Tests Test 11/27/19 22:00 11/27/19 22:37 11/28/19 04:00 11/28/19 07:59 Troponin I Quantitative < 0.017 ng/mL (0.000-0.055) < 0.017 ng/mL (0.000-0.055) Glucose (Fingerstick) 188 mg/dL (70-99) 147 mg/dL (70-99) White Blood Count 9.7 x10^3/uL (4.0-11.0) Red Blood Count 4.14 x10^6/uL (3.50-5.40) Hemoglobin 13.6 g/dL (12.0-15.5) Hematocrit 39.6 % (36.0-47.0) Mean Corpuscular Volume 96 fL (79-100) Mean Corpuscular Hemoglobin 33 pg (25-35) Mean Corpuscular Hemoglobin Concent 35 g/dL (31-37) Red Cell Distribution Width 12.3 % (11.5-14.5) Platelet Count 229 x10^3/uL (140-400) Neutrophils (%) (Auto) 50 % (31-73) Lymphocytes (%) (Auto) 41 % (24-48) Monocytes (%) (Auto) 7 % (0-9) Eosinophils (%) (Auto) 2 % (0-3) Basophils (%) (Auto) 0 % (0-3) Neutrophils # (Auto) 4.8 x10^3/uL (1.8-7.7) Lymphocytes # (Auto) 4.0 x10^3/uL (1.0-4.8) Monocytes # (Auto) 0.7 x10^3/uL (0.0-1.1) Eosinophils # (Auto) 0.2 x10^3/uL (0.0-0.7) Basophils # (Auto) 0.0 x10^3/uL (0.0-0.2) Sodium Level 139 mmol/L (136-145) Potassium Level 3.9 mmol/L (3.5-5.1) Chloride Level 105 mmol/L (98-107) Carbon Dioxide Level 27 mmol/L (21-32) Anion Gap 7 (6-14) Blood Urea Nitrogen 12 mg/dL (7-20) Creatinine 0.8 mg/dL (0.6-1.0) Estimated GFR (Cockcroft-Gault) 80.3 Glucose Level 124 mg/dL (70-99) Calcium Level 7.9 mg/dL (8.5-10.1) Triglycerides Level 137 mg/dL (0-150) Cholesterol Level 158 mg/dL (0-200) LDL Cholesterol, Calculated 100 mg/dL (0-100) VLDL Cholesterol, Calculated 27 mg/dL (0-40) Non-HDL Cholesterol Calculated 127 mg/dL (0-129) HDL Cholesterol 31 mg/dL (40-60) Cholesterol/HDL Ratio 5.1 Thyroid Stimulating Hormone (TSH) 2.312 uIU/mL (0.358-3.74) Test 11/28/19 11:15 11/28/19 11:47 11/28/19 17:10 11/28/19 20:54 D-Dimer (Norma) 0.51 ug/mlFEU (0.00-0.50) Glucose (Fingerstick) 132 mg/dL (70-99) 117 mg/dL (70-99) 130 mg/dL (70-99) Microbiology 11/27/19 Blood Culture - Preliminary, Resulted NO GROWTH AFTER 1 DAY Medications Current Medications Atorvastatin Calcium (Lipitor) 20 mg HS PO ; Start 11/28/19 at 21:00 Ceftriaxone Sodium (Rocephin) 2 gm Q24H IVP Last administered on 11/28/19at 14:30; Start 11/28/19 at 14:00 Info (CONTRAST GIVEN -- Rx MONITORING) 1 each PRN DAILY PRN MC SEE COMMENTS; Start 11/28/19 at 12:45; Stop 11/30/19 at 12:44 Iohexol (Omnipaque 350 Mg/ml) 100 ml 1X ONCE IV Last administered on 11/28/19at 13:00; Start 11/28/19 at 13:00; Stop 11/28/19 at 13:01; Status DC Lactobacillus Rhamnosus (Culturelle) 1 cap BID PO Last administered on 11/28/19at 20:35; Start 11/28/19 at 21:00 Metformin HCl (Glucophage) 1,000 mg BIDWMEALS PO ; Start 11/30/19 at 17:00 Ondansetron HCl (Zofran) 4 mg PRN Q6HRS PRN IVP NAUSEA/VOMITING Last administered on 11/28/19at 10:18; Start 11/28/19 at 10:00 Pantoprazole Sodium (Protonix) 40 mg DAILYAC PO Last administered on 11/28/19at 08:55; Start 11/28/19 at 07:30 Polyethylene Glycol (miraLAX PACKET) 17 gm DAILY PO Last administered on 11/28/19at 13:13; Start 11/28/19 at 11:30 Vitals/I & O Vital Sign - Last 24 Hours 11/27/19 11/27/19 11/28/19 11/28/19 22:00 23:00 07:30 08:00 Temp 98.6 97.9 98.6 97.9 Pulse 65 56 Resp 18 16 B/P (MAP) 132/65 (87) 143/60 (87) Pulse Ox 95 98 O2 Delivery Room Air Room Air Room Air Room Air 11/28/19 11/28/19 11/28/19 11/28/19 10:00 11:25 11:27 11:29 Temp 98.6 98.6 Pulse 77 61 54 Resp 16 B/P (MAP) 141/69 (93) 135/68 (90) 140/74 (96) Pulse Ox 98 96 O2 Delivery Room Air Room Air 11/28/19 11/28/19 11/28/19 11:30 15:00 21:10 Temp 97.6 97.6 Pulse 55 Resp 17 B/P (MAP) 121/63 (82) Pulse Ox 96 97 O2 Delivery Room Air Room Air Room Air Intake and Output 11/27/19 11/27/19 11/28/19 15:00 23:00 07:00 Intake Total 700 ml 100 ml Output Total 1100 ml Balance 700 ml -1000 ml Justicifation of Admission Dx: Justifications for Admission: Justification of Admission Dx: Yes Sepsis: Infection BALTA SCHMITT MD Nov 28, 2019 21:20
--- NOTE | 2019-11-28 22:20 | NUR ---
TRANSFER NOTE: Patient arrived to room 524 via wheelchair accompanied by 6S staff at approximately 2210. Transferred from room 669. Bed low, locked, call light within reach. All of patient's questions answered at this time. Will continue to monitor.
[2019-11-29 02:09] LABS: HEMOGLOBIN A1C 6.8 % (4.8-5.6)
[2019-11-29 03:00] VITALS: BP 114/59
[2019-11-29] MEDS: IV NORMAL SALINE 1000ML BAG 1,000 ML IV SCH (05:30)
--- NOTE | 2019-11-29 06:34 | RAD ---
Abdominal ultrasound HISTORY: Abdominal pain and nausea. FINDINGS: Imaged pancreas, upper abdominal aorta and IVC are normal although there are segments of the structures obscured by bowel gas shadowing. Increased liver echogenicity typical steatosis. No liver mass or nodularity documented. Hepatopedal portal vein blood flow. Small echogenic nonshadowing focus of the gallbladder neck measuring 3 mm could represent a small sludge ball or polyp. No biliary ductal dilation common body diameters 3 mm. No inflammatory change of the gallbladder. Right renal length 11.5 cm. No evidence of right renal mass or hydronephrosis. Spleen and left kidney were not evaluated. IMPRESSION: 1. 3 mm echogenic nonshadowing focus of the gallbladder neck could represent a small sludge ball or cholesterol polyp. No shadowing calculi or inflammatory change evident. No biliary ductal dilation. 2. Increased liver echogenicity most likely changes of steatosis. Electronically signed by: Georges Valdivia MD (11/29/2019 6:31 AM) [facility]
[2019-11-29] MEDS: PANTOPRAZOLE 40 MG TABLET.DR. PO SCH (07:30)
[2019-11-29 07:52] VITALS: BP 108/37
--- NOTE | 2019-11-29 08:41 | PDOC ---
PROGRESS NOTES Date of Service: DATE: 11/29/19 TIME: 08:40 Subjective Subjective feels better ,no fever Objective Objective Vital Signs Date Time Temp Pulse Resp B/P (MAP) Pulse Ox O2 Delivery O2 Flow Rate FiO2 11/29/19 07:52 98.3 52 18 108/37 (60) 96 Room Air 98.3 Intake and Output 11/29/19 07:00 Intake Total 200 ml Balance 200 ml Intake Oral 200 ml # Voids 1 Physical Exam Abdomen: Soft Heart: Regular rate (SR) Extremities: No edema General: Alert, Oriented X3, Cooperative, No acute distress HEENT: Atraumatic Lungs: Clear to auscultation, Other (CXR reviewed) MUSCULOSKELETAL: No deformity Neuro: Normal speech, Sensation intact Psych/Mental Status: Mental status NL Skin: No breakdown Assessment Assessment FINAL IMPRESSION: 1. Chills with fever. 2. Possible suspect COVID. 3. Abdominal pain, possible diverticulitis. 4. Diabetes. 5. Hypertension. 6. History of migraines. PLAN: covid -neg suggestive of uti Ct scan fron [facility] for abd pathology.2 cm cyst left kidney id consult appreciated Gi seen ,sono liver -fatty liver. ekg T wave inversion ,cardology consult. wbc and labs ok. CTA -neg for PE. echo today d/c home today At this time, admit to hospital, hydrate with IV fluids. Blood culture. Start on broad-spectrum antibiotic, Cipro and Flagyl for possible diverticulitis and further recommendation for a GI consult, ID consult. If next 24 hours, does not look like any bacterial infection, we can discontinue the antibiotics. COVID-19 test was done. Comment Review of Relevant I have reviewed the following items feliciano (where applicable) has been applied. Labs Laboratory Tests Test 11/28/19 11:15 11/28/19 11:47 11/28/19 17:10 11/28/19 20:54 D-Dimer (Norma) 0.51 ug/mlFEU (0.00-0.50) Glucose (Fingerstick) 132 mg/dL (70-99) 117 mg/dL (70-99) 130 mg/dL (70-99) Test 11/29/19 07:28 Glucose (Fingerstick) 153 mg/dL (70-99) Microbiology 11/27/19 Blood Culture - Preliminary, Resulted NO GROWTH AFTER 1 DAY Medications Current Medications Atorvastatin Calcium (Lipitor) 20 mg HS PO ; Start 11/28/19 at 21:00 Ceftriaxone Sodium (Rocephin) 2 gm Q24H IVP Last administered on 11/28/19at 1 4:30; Start 11/28/19 at 14:00 Info (CONTRAST GIVEN -- Rx MONITORING) 1 each PRN DAILY PRN MC SEE COMMENTS; Start 11/28/19 at 12:45; Stop 11/30/19 at 12:44 Iohexol (Omnipaque 350 Mg/ml) 100 ml 1X ONCE IV Last administered on 11/28/19at 13:00; Start 11/28/19 at 13:00; Stop 11/28/19 at 13:01; Status DC Lactobacillus Rhamnosus (Culturelle) 1 cap BID PO Last administered on 11/28/19a t 20:35; Start 11/28/19 at 21:00 Metformin HCl (Glucophage) 1,000 mg BIDWMEALS PO ; Start 11/30/19 at 17:00 Ondansetron HCl (Zofran) 4 mg PRN Q6HRS PRN IVP NAUSEA/VOMITING Last administered on 11/28/19at 10:18; Start 11/28/19 at 10:00 Polyethylene Glycol (miraLAX PACKET) 17 gm DAILY PO Last administered on 11/28/19at 13:13; Start 11/28/19 at 11:30 Vitals/I & O Vital Sign - Last 24 Hours 11/28/19 11/28/19 11/28/19 11/28/19 10:00 11:25 11:27 11:29 Temp 98.6 98.6 Pulse 77 61 54 Resp 16 B/P (MAP) 141/69 (93) 135/68 (90) 140/74 (96) Pulse Ox 98 96 O2 Delivery Room Air Room Air 11/28/19 11/28/19 11/28/19 11/28/19 11:30 15:00 19:00 21:10 Temp 97.6 98.3 97.6 98.3 Pulse 55 54 Resp 17 B/P (MAP) 121/63 (82) 130/73 (92) Pulse Ox 96 97 94 O2 Delivery Room Air Room Air Room Air Room Air 11/28/19 11/28/19 11/29/19 11/29/19 22:10 23:00 03:00 07:52 Temp 98.1 98.3 98.1 98.3 Pulse 54 52 Resp 18 B/P (MAP) () 114/59 (77) 108/37 (60) Pulse Ox 94 96 O2 Delivery Room Air Room Air Room Air Room Air Intake and Output 11/28/19 11/28/19 11/29/19 15:00 23:00 07:00 Intake Total 200 ml 0 ml Balance 200 ml 0 ml Justicifation of Admission Dx: Justifications for Admission: Justification of Admission Dx: Yes Sepsis: Infection BALTA SCHMITT MD Nov 29, 2019 08:41
[2019-11-29] MEDS ORDERED: CEPH-264 PO (08:49)
[2019-11-29] MEDS: LACTOBACILLUS RHAMNOSUS GG 1 CAPSULE. PO SCH (09:00)
[2019-11-29] MEDS: POLYETHYLENE GLYCOL 3350 17 GM PACKET. PO SCH (09:00)
[2019-11-29 11:45] VITALS: BP 105/46
--- NOTE | 2019-11-29 12:17 | PDOC ---
Infectious Disease Note Subjective: Subjective Patient feels better Has some residual left lower quadrant abdominal pain which he attributes to constipation Denies fever, nausea, vomiting, shortness of breath, diarrhea, rash Otherwise as above Vital Signs: Vital Signs Vital Signs Date Time Temp Pulse Resp B/P (MAP) Pulse Ox O2 Delivery O2 Flow Rate FiO2 11/29/19 11:45 98.2 56 18 105/46 (65) 100 Room Air 98.2 Physical Exam: PHYSICAL EXAM GENERAL: Alert, awake female, appears much better HEENT: Normocephalic atraumatic, no icterus.no thrush, no oral lesions, NECK: Supple, no JVD. LUNGS: Clear bilaterally. HEART: S1, S2.no murmurs ABDOMEN: Soft, nontender, nondistended, no rebound, no guarding. EXTREMITIES: No edema, no cyanosis. DERMATOLOGIC: Warm, dry. No generalized rash. NEUROLOGIC: Alert and oriented x 3, grossly nonfocal. PSYCHIATRIC: Cooperative, appropriate mood and affect, appears slightly anxious. Medications: Inpatient Meds: Current Medications Medications (Trade) Dose Ordered Sig/Contreras Start Time Stop Time Status Last Admin Dose Admin Acetaminophen/ Hydrocodone Bitart (Lortab 5/325) 2 tab PRN Q6HRS PRN 11/27/19 14:45 11/27/19 21:58 2 TAB Alprazolam (Xanax) 0.5 mg PRN TID PRN 11/27/19 16:15 11/28/19 01:14 0.5 MG Atorvastatin Calcium (Lipitor) 20 mg HS 11/28/19 21:00 Ceftriaxone Sodium (Rocephin) 2 gm Q24H 11/28/19 14:00 11/28/19 14:30 2 GM Ciprofloxacin/ Dextrose 200 ml @ 200 mls/hr Q12H 11/27/19 16:00 11/28/19 12:50 DC 11/28/19 04:41 200 MLS/HR Ibuprofen (Motrin) 800 mg PRN Q8HRS PRN 11/27/19 16:30 Info (CONTRAST GIVEN -- Rx MONITORING) 1 each PRN DAILY PRN 11/28/19 12:45 11/30/19 12:44 Iohexol (Omnipaque 350 Mg/ml) 100 ml 1X ONCE 11/28/19 13:00 11/28/19 13:01 DC 11/28/19 13:00 100 ML Lactobacillus Rhamnosus (Culturelle) 1 cap BID 11/28/19 21:00 11/28/19 20:35 1 CAP Metformin HCl (Glucophage) 1,000 mg BIDWMEALS 11/30/19 17:00 Metronidazole 100 ml @ 100 mls/hr Q12HR 11/27/19 21:00 11/28/19 12:50 DC 11/28/19 08:54 100 MLS/HR Ondansetron HCl (Zofran) 4 mg PRN Q6HRS PRN 11/28/19 10:00 11/28/19 10:18 4 MG Pantoprazole Sodium (Protonix) 40 mg DAILYAC 11/28/19 07:30 11/28/19 08:55 40 MG Polyethylene Glycol (miraLAX PACKET) 17 gm DAILY 11/28/19 11:30 11/28/19 13:13 17 GM Sodium Chloride 1,000 ml @ 100 mls/hr Q10H 11/27/19 14:30 11/28/19 04:42 100 MLS/HR Labs: Lab Laboratory Tests Test 11/28/19 17:10 11/28/19 20:54 11/29/19 07:28 11/29/19 11:08 Glucose (Fingerstick) 117 mg/dL (70-99) 130 mg/dL (70-99) 153 mg/dL (70-99) 117 mg/dL (70-99) Objective: Assessment: 1. Subjective fever, night sweats, flushing, chills, etiology unclear. Resolved 2. Pyuria. Urine culture negative so far. Blood cultures negative 3. Abdominal pain. Improved 4. History of migraine and arthritis. 5. COVID negative 6. History of underlying autoimmune disorder 7. Constipation Plan: Plan of Care Continue ceftriaxone once pending urine culture. Ready for discharge can transition to p.o. antibiotics Follow-up urine cultures until complete Follow up cultures and lab. Continue supportive care. ARIANNA GARCÍA MD Nov 29, 2019 12:17
--- NOTE | 2019-11-29 12:52 | PDOC ---
Date of Service: DATE: 11/29/19 TIME: 12:48 Subjective: Subjective: Feels better, wants to go home, now says hasn't stooled in a week. Wants something more than Miralax but does not want to risk adverse effects of abdominal cramping. Objective: Objective: Per nurse - to DC today. Vital Signs: Vital Signs Date Time Temp Pulse Resp B/P (MAP) Pulse Ox O2 Delivery O2 Flow Rate FiO2 11/29/19 11:45 98.2 56 18 105/46 (65) 100 Room Air 98.2 Labs: Laboratory Tests Test 11/28/19 17:10 11/28/19 20:54 11/29/19 07:28 11/29/19 11:08 Glucose (Fingerstick) 117 mg/dL 130 mg/dL 153 mg/dL 117 mg/dL Imaging: Abd US IMPRESSION: 1. 3 mm echogenic nonshadowing focus of the gallbladder neck could represent a small sludge ball or cholesterol polyp. No shadowing calculi or inflammatory change evident. No biliary ductal dilation. 2. Increased liver echogenicity most likely changes of steatosis. Chest CTA Impression: 1. No central pulmonary embolism is identified, limited evaluation of the more distal and smaller branches on this exam. 2. There is likely hepatic steatosis. PE: GEN: NAD LUNGS: CTAB HEART: RRR ABD: S/ND/NT NEURO/PSYCH: A & O 3 A/P: COVID negative Abd pain, constipation -- Evolving symptoms but improved overall. Okay to DC per GI. Dulcolax if she wants. Follow-up PRN - will review US w/ Dr. Samson. Consider continuing PPI for now. Justicifation of Admission Dx: Justifications for Admission: Justification of Admission Dx: Yes Sepsis: Infection DL LYLES Nov 29, 2019 12:52
[2019-11-29] MEDS ORDERED: BISACODYL 5 MG TABLET.DR. PO ONE (13:00)
[2019-11-29 15:47] VITALS: BP 117/56
--- NOTE | 2019-11-29 15:49 | NUR ---
patient discharged home via private vehicle. pt drove self. did not want to ride in for discharge. meds and follow up reviewed. IV dc'd, cath intact. pt stable upon dc
--- NOTE | 2019-11-29 16:31 | NUR ---
SW following. Reviewed chart and discussed with RN. Pt from home, room air, no PT/OT needs. Pt to discharge home today on oral medications. No further SW needs at this time.
--- NOTE | 2019-11-30 06:17 | CARD ---
MR#: [id number] Date of Study: 11/29/2019 Ordering Physician: CRISTOPHER MONTGOMERY, Referring Physician: CRISTOPHER MONTGOMERY, Tech: Sandy Das APPROVED REPORT EXAM: Two-dimensional and M-mode echocardiogram with Doppler and color Doppler. Other Information HR: 55bpm INDICATION Abdominal pain RISK FACTORS Hyperlipidemia Diabetes 2D DIMENSIONS RVDd3.3 (2.9-3.5cm)Left Atrium(2D)4.4 (1.6-4.0cm) IVSd1.3 (0.7-1.1cm)Aortic Root(2D)3.3 (2.0-3.7cm) LVDd4.9 (3.9-5.9cm)LVOT Diameter2.1 (1.8-2.4cm) PWd1.0 (0.7-1.1cm)LVDs3.2 (2.5-4.0cm) FS (%) 34.9 %SV73.4 ml LVEF(%)64.0 (>50%) Aortic Valve AoV Peak Rizwan.134.8cm/sAoV VTI31.2cm AO Peak GR.7.3mmHgLVOT VTI 22.67cm AO Mean GR.4mmHg Mitral Valve MV E Fdptkcna66.5cm/sMV DECEL [id number] MV A Kpinhloo53.2cm/sE/A Ratio2.0 TDI Lateral E' P. V14.22cm/sMedial E' P. V11.46cm/s E/Lateral E'5.1E/Medial E'6.3 Tricuspid Valve TR P. Zovgzonh827gd/sRAP SJBGEYVI5cdOg TR Peak Gr.09uqMhQKHB98ihDc Pulmonary Vein S1 Ezursayv36.6cm/sS2 Xfjmoofs01.53cm/s D2 Tfcbtnrc91.5cm/sPVa [id number] LEFT VENTRICLE The left ventricle is normal size. There is borderline to mild concentric left ventricular hypertroph y. The left ventricular systolic function is normal and the ejection fraction is within normal range. The Ejection Fraction is 50-55%. There is normal LV segmental wall motion. The left ventricular belcher tolic function and filling is normal for age. RIGHT VENTRICLE The right ventricle is normal size. There is normal right ventricular wall thickness. The right ventr icular systolic function is normal. ATRIA The left atrium size is normal. The right atrium size is normal. The interatrial septum is intact wit h no evidence for an atrial septal defect or patent foramen ovale as noted on 2-D or Doppler imaging. AORTIC VALVE The aortic valve is normal in structure and function. Doppler and Color Flow revealed no significant aortic regurgitation. There is no significant aortic valvular stenosis. MITRAL VALVE The mitral valve is normal in structure and function. There is no evidence of mitral valve prolapse. There is no mitral valve stenosis. Doppler and Color-flow revealed trace mitral regurgitation. TRICUSPID VALVE The tricuspid valve is normal in structure and function. Doppler and Color Flow revealed trace tricus pid regurgitation with an estimated PAP of 23 mmHg. There is no tricuspid valve stenosis. PULMONIC VALVE The pulmonary valve is normal in structure and function. Doppler and Color Flow revealed no pulmonic valvular regurgitation. There is no pulmonic valvular stenosis. GREAT VESSELS The aortic root is normal in size. The IVC is normal in size and collapses >50% with inspiration. PERICARDIAL EFFUSION There is no evidence of significant pericardial effusion. Critical Notification Critical Value: No <Conclusion> The left ventricular systolic function is normal and the ejection fraction is within normal range. Th e Ejection Fraction is 50-55%. There is normal LV segmental wall motion. Signed by : Esequiel Butler, Electronically Approved : 11/30/2019 06:17:19
[2019-11-30] MEDS ORDERED: metFORMIN 500 MG TABLET PO SCH (17:00)
--- NOTE | 2019-12-03 15:31 | PDOC ---
Provider Note Provider Note Discharge summary dictated.#[id number]. Justicifation of Admission Dx: Justifications for Admission: Justification of Admission Dx: Yes Sepsis: Infection BALTA SCHMITT MD Dec 03, 2019 15:31
--- NOTE | 2019-12-03 16:24 | DS ---
DATE OF DISCHARGE: 11/29/2019 REASON FOR ADMISSION TO THE HOSPITAL: Fever with chills, abdominal pain. The patient had been to the Emergency Room 24 hours before without any improvement. CONSULTATIONS: Dr. Gaston, ID; Dr. Samson, GI; Cardiology. PROCEDURES DONE: 1. Echocardiogram. 2. CT angiogram of the chest. 3. Abdominal ultrasound. HOSPITAL COURSE: The patient is a 39-year-old female. The patient was at the [facility] 24 hours before for fever, chills, and had a workup including blood tests and CT scan and she was told to follow up with primary care. She has seen me in the next day, still continues to not feel well. She has a history of diabetes, obesity and she was afraid that fever and chills could be COVID infection. The patient was tender in the abdomen while we examined in the office. The patient was admitted with possible diverticulitis as the differential diagnosis, was put on Flagyl and Cipro. We did not have the reports of the CT scan from [facility]. The patient was seen by GI. Her urine shows maybe evidence of UTI. Seen by Infectious Disease. Antibiotics were changed to Rocephin. The patient was seen by GI and we got the reports of the CT scan the next day. CT was benign. The patient had a sonogram of the gallbladder, which was negative for gallstones. The patient in the meantime was feeling better. She had a COVID test negative. Her white count has remained normal. She did not have much fevers and the patient was discharged on Keflex for possible UTI. Urine culture was still pending. FINAL DIAGNOSES: 1. Fever with chills. Initial diagnosis was diverticulitis, but CT scan was negative. 2. Urinary tract infection. 3. Diabetes. 4. Obesity. The patient had a COVID test negative. The patient also had slight changes in the T waves, seen by Cardiology, had echocardiogram that shows a good left ventricular function. BALTA SCHMITT MD DR: GET/thong JOB#: [id number] / [id number]
== END 2019-11-29 15:50 | disposition home or self-care (01) | DRG 690 ==
LOC: 6 SOUTH 13:46 → 5 NORTH 11-28 22:10
PROVIDERS: ADMIT Internal Medicine; ATTEND Internal Medicine
DX: N39.0 Urinary tract infection, site not specified (principal); E11.9 Type 2 diabetes mellitus without complications; E78.5 Hyperlipidemia, unspecified; I10 Essential (primary) hypertension; K21.9 Gastro-esophageal reflux disease without esophagitis; K59.00 Constipation, unspecified; K76.0 Fatty (change of) liver, not elsewhere classified; Z20.828 Contact with and (suspected) exposure to other viral communicable diseases; Z82.49 Family history of ischemic heart disease and other diseases of the circulatory system; Z82.3 Family history of stroke; Z83.2 Family history of diseases of the blood and blood-forming organs and certain disorders involving the immune mechanism; Z83.3 Family history of diabetes mellitus; F41.9 Anxiety disorder, unspecified; G43.909 Migraine, unspecified, not intractable, without status migrainosus
CPT/HCPCS: 36415; 71045; 71275; 76705; 80048; 80053; 80061; 81001; 82150; 82962; 83036; 83690; 84443; 84484; 85025; 85379; 87040; 87086; 93005; 93306; J0696; J0744; J2405; J3490; J7030; Q9967; G0378; U0003-CS

== ENCOUNTER → 2019-12-19 | Outpatient (CLI) | payer OTHER ==
[2019-11-29 15:47] VITALS: BP 117/56
[~2019-12-19] MED LIST changes: +CEPH-264 PO; +METF100010 PO
--- NOTE | 2019-12-20 10:32 | RAD ---
DATE: 12/19/2019 7:53 AM EXAM: MAMMO CHET SCREENING BILATERAL HISTORY: Screening COMPARISON: None. This is a baseline. Bilateral CC and MLO views of the breasts were performed. Bilateral breast tomosynthesis was performed in CC and MLO projections. This study was interpreted with the benefit of Computerized Aided Detection (CAD). FINDINGS: Breast Density: SCATTERED The breast parenchyma shows scattered fibroglandular densities. Breast parenchyma level B No suspicious masses, microcalcifications or architectural distortion is present to suggest malignancy in either breast. The visualized axillae are unremarkable. IMPRESSION: No mammographic evidence of malignancy. BI-RADS CATEGORY: 1 NEGATIVE RECOMMENDED FOLLOW-UP: 12M 12 MONTH FOLLOW-UP Annual screening mammography is recommended, unless clinically indicated sooner based on symptoms or change in physical exam. PQRS compliance statement: Patient information was entered into a reminder system with a target due date for the next mammogram. Mammography is a sensitive method for finding small breast cancers, but it does not detect them all and is not a substitute for careful clinical examination. A negative mammogram does not negate a clinically suspicious finding and should not result in delay in biopsying a clinically suspicious abnormality. "Our facility is accredited by the [employer] Mammography Program."
== END | disposition home or self-care (01) ==
LOC: MAMMO 07:46
PROVIDERS: ATTEND Obstetrics & Gynecology
DX: Z12.31 Encounter for screening mammogram for malignant neoplasm of breast (principal)
CPT/HCPCS: 77063; 77067

== ENCOUNTER 2021-07-27 14:42 | Inpatient (IN) | payer OTHER ==
[~2021-07-27] VITALS: Ht 175.3 cm; Wt 101.8 kg
[2021-07-27] MEDS ORDERED: DEXTROSE 50% 25 GM / 50ML DISP.SYRIN. IV PRN (15:30)
[2021-07-27] MEDS ORDERED: IV DEXTROSE 5% 250 ML BAG. IV PRN (15:30)
[2021-07-27 16:00] VITALS: BP 109/61
[2021-07-27] MEDS ORDERED: ASPI-886 PO (16:03)
[2021-07-27] MEDS ORDERED: INSU100V41 SQ (16:03)
[2021-07-27] MEDS: IV NORMAL SALINE 1000ML BAG 1,000 ML IV SCH (16:21)
--- NOTE | 2021-07-27 16:42 | RAD ---
XR ABDOMEN 1V History: Abdominal pain with nausea and vomiting. Comparison: None. Technique: AP portable supine radiograph of the abdomen. Findings: Bowel gas pattern: Nonobstructive bowel gas pattern. No excessive colonic stool burden. Free air: None. Abnormal calcifications: None. Bones: No acute findings. Mild degenerative changes of the lumbar spine. Rudimentary 12th ribs. Other: Intrauterine device projects in the pelvis. Impression: 1. No acute abdominal findings. Electronically signed by: Elijah Mullen MD (07/27/2021 4:39 PM) [id number]
[2021-07-27 16:59] LABS: BASO # 0.1 x10^3/uL (0.0-0.2); BASO % 1 % (0-3); EOS # 0.2 x10^3/uL (0.0-0.7); EOS % 2 % (0-3); HEMATOCRIT 42.2 % (36.0-47.0); HEMOGLOBIN 14.6 g/dL (12.0-15.5); LYMPH # 3.2 x10^3/uL (1.0-4.8); LYMPH % 36 % (24-48); MEAN CORPUSCULAR HEMOGLOBIN 33 pg (25-35); MEAN CORPUSCULAR HGB CONC 35 g/dL (31-37); MEAN CORPUSCULAR VOLUME 95 fL (79-100); MONO # 0.5 x10^3/uL (0.0-1.1); MONO % 6 % (0-9); NEUT % 56 % (31-73); PLATELET COUNT 229 x10^3/uL (140-400); RED BLOOD COUNT 4.45 x10^6/uL (3.50-5.40); RED CELL DISTRIBUTION WIDTH 12.2 % (11.5-14.5); WHITE BLOOD COUNT 8.9 x10^3/uL (4.0-11.0)
[2021-07-27] MEDS: INSULIN LISPRO 300 UNITS/3 ML VIAL. SQ SCH (16:59)
[2021-07-27 17:22] LABS: ALBUMIN 3.7 g/dL (3.4-5.0); ALBUMIN/GLOBULIN RATIO 1.2 (1.0-1.7); CALCIUM 8.9 mg/dL (8.5-10.1); CREATININE 0.6 mg/dL (0.6-1.0); GFR 111.3; POTASSIUM 3.7 mmol/L (3.5-5.1); TOTAL BILIRUBIN 0.3 mg/dL (0.2-1.0); TOTAL PROTEIN 6.8 g/dL (6.4-8.2)
[2021-07-27 19:10] VITALS: BP 127/80
[2021-07-27] MEDS ORDERED: ALPRAZolam 0.5 MG TABLET PO PRN (22:15)
[2021-07-27 23:00] VITALS: BP 128/65
[2021-07-27] MEDS ORDERED: ASPIRIN ENTERIC COATED 81 MG TABLET.DR. PO SCH (23:00)
[2021-07-27] MEDS ORDERED: ATORVASTATIN CALCIUM 10 MG TABLET. PO SCH (23:00)
[2021-07-28] MEDS: IV NORMAL SALINE 1000ML BAG 1,000 ML IV SCH ×2 (02:26→11:30)
[2021-07-28 03:19] VITALS: BP 110/56
[2021-07-28 07:00] VITALS: BP 138/71
[2021-07-28] MEDS: INSULIN LISPRO 300 UNITS/3 ML VIAL. SQ SCH ×2 (08:00→12:00)
--- NOTE | 2021-07-28 09:10 | PDOC ---
Provider Note Date of Service: DATE: 07/28/21 TIME: 09:10 Provider Note Pt seen .H&P dictated.#[id number]. Justifications for Admission Other Justification BALTA SCHMITT MD Jul 28, 2021 09:10
[2021-07-28] MEDS ORDERED: IOHEXOL 240 MG/ML 50ML VIAL. PO ONE (09:30)
[2021-07-28] MEDS ORDERED: IOHEXOL 300 MG/ML 100ML VIAL. IV ONE (09:30)
[2021-07-28] MEDS ORDERED: CONTRAST GIVEN. MC PRN (09:45)
--- NOTE | 2021-07-28 09:57 | PDOC2 ---
GI CONSULT Date of Service: DATE: 07/28/21 TIME: 09:57 Reason For Consult: abdominal pain HPI: HPI: 40 y/o female directly admitted by Dr. Price. We saw in 11/2019 for a variety of symptoms including fever/sweats/flushing, abdominal pain, heartburn, and change in bowel habits/constipation. This time, gives history of started Trulicity ~3 weeks ago. Given first injection in PCP's office on a , then "violently" ill on Tuesday w/ vomiting and diarrhea for about 6 hours. Burns well for the next week except for some constipation (straining, hard stools) - drank prune juice and ate prunes. Tolerated Trulicity the next Tuesday. Ongoing constipation. Next Trulicity dose was the next Tuesday (07/24/21). Then ill on Tuesday w/ vomiting and "a little" diarrhea but also felt impacted with stool. Associated w/ diffuse abdominal cramping like someone beat her up, unable to pass gas. Pain was so intense she cried. Also self-disimpacted stool. Burns better yesterday but felt dehydrated (didn't urinate) and passed some bloody mucous. Saw Dr. Price in clinic who advised admission. Feels even better today - passing gas, urinating, tolerating clear liquid diet. Still has some LLQ discomfort. No reflux, dysphagia, hematemesis, chronic abd pain, hematochezia, melena, or chronic diarrhea. Occasional constipated but this was different. Sometimes takes Miralax. Has intentionally lost 80 pounds over the past few years. No previous EGD or colonoscopy. H/o fatty liver and possible GB sludge or polyp on past US. No pancreas or PUD history. CARLYLE negative in past. Takes ASA QD and hydrocodone PRN - has taken one pill during the past month, previously has taken a few times daily for several days in a row. PMH: PMH: anxiety, DM, HLD, migraines, spondylolisthesis FH: Family History: Cancer (father - passed from colon cancer age 62), CAD, CVA, Other (lupus - mother and sister) Social History: Smoke: Quit ALCOHOL: occassional Drugs: None ROS: GEN: Denies fevers, chills, sweats HEENT: Denies blurred vision, sore throat CV: Denies chest pain RESP: Denies shortness of air, cough GI: Per HPI : Denies hematuria, dysuria ENDO: +weight loss NEURO: Denies confusion, dizziness MSK: +chronic back apin SKIN: Denies jaundice, pruritus Vitals: Vitals: Vital Signs Date Time Temp Pulse Resp B/P (MAP) Pulse Ox O2 Delivery O2 Flow Rate FiO2 07/28/21 08:00 Room Air 07/28/21 07:00 98.1 76 16 138/71 (93) 98 98.1 Labs: Labs: Laboratory Tests Test 07/27/21 16:47 07/28/21 07:55 White Blood Count 8.9 x10^3/uL (4.0-11.0) Red Blood Count 4.45 x10^6/uL (3.50-5.40) Hemoglobin 14.6 g/dL (12.0-15.5) Hematocrit 42.2 % (36.0-47.0) Mean Corpuscular Volume 95 fL (79-100) Mean Corpuscular Hemoglobin 33 pg (25-35) Mean Corpuscular Hemoglobin Concent 35 g/dL (31-37) Red Cell Distribution Width 12.2 % (11.5-14.5) Platelet Count 229 x10^3/uL (140-400) Neutrophils (%) (Auto) 56 % (31-73) Lymphocytes (%) (Auto) 36 % (24-48) Monocytes (%) (Auto) 6 % (0-9) Eosinophils (%) (Auto) 2 % (0-3) Basophils (%) (Auto) 1 % (0-3) Neutrophils # (Auto) 5.0 x10^3/uL (1.8-7.7) Lymphocytes # (Auto) 3.2 x10^3/uL (1.0-4.8) Monocytes # (Auto) 0.5 x10^3/uL (0.0-1.1) Eosinophils # (Auto) 0.2 x10^3/uL (0.0-0.7) Basophils # (Auto) 0.1 x10^3/uL (0.0-0.2) Sodium Level 141 mmol/L (136-145) Potassium Level 3.7 mmol/L (3.5-5.1) Chloride Level 104 mmol/L (98-107) Carbon Dioxide Level 26 mmol/L (21-32) Anion Gap 11 (6-14) Blood Urea Nitrogen 11 mg/dL (7-20) Creatinine 0.6 mg/dL (0.6-1.0) Estimated GFR (Cockcroft-Gault) 111.3 BUN/Creatinine Ratio 18 (6-20) Glucose Level 128 mg/dL (70-99) Calcium Level 8.9 mg/dL (8.5-10.1) Total Bilirubin 0.3 mg/dL (0.2-1.0) Aspartate Amino Transf (AST/SGOT) 20 U/L (15-37) Alanine Aminotransferase (ALT/SGPT) 32 U/L (14-59) Alkaline Phosphatase 56 U/L (46-116) Total Protein 6.8 g/dL (6.4-8.2) Albumin 3.7 g/dL (3.4-5.0) Albumin/Globulin Ratio 1.2 (1.0-1.7) Amylase Level 34 U/L (25-115) Lipase 233 U/L (73-393) Glucose (Fingerstick) 173 mg/dL (70-99) Allergies: Coded Allergies: topiramate (Verified Allergy, Intermediate, 11/29/19) Medications: Current Medications Medications (Trade) Dose Ordered Sig/Contreras Route PRN Reason Start Time Stop Time Status Last Admin Dose Admin Sodium Chloride 1,000 ml @ 100 mls/hr Q10H IV 07/27/21 15:30 07/28/21 02:26 Aspirin (Ecotrin) 81 mg HS PO 07/27/21 23:00 07/27/21 23:31 Atorvastatin Calcium (Lipitor) 20 mg HS PO 07/27/21 23:00 07/27/21 23:31 Imaging: Imaging: KUB Impression: 1. No acute abdominal findings. PE: GEN: NAD HEENT: Atraumatic, PERRL LUNGS: CTAB HEART: RRR ABD: NABS, S/ND, LLQ discomfort to deep palpation EXTREMITY: No edema SKIN: cheeks flushed NEURO/PSYCH: A & O 3, anxious A/P: A/P: Intermittent vomiting, lower abd cramping, diarrhea/constipation CRC screen, colon cancer - no previous colonoscopy H/o occasional constipation ?GB sludge/polyp, fatty liver Chronic pain on hydrocodone PRN (not much recently) DM, recently started Trulicity - she feels this is the cause of her illness -- Better today. Labs unrevealing. Awaiting CT. Tolerating clears - seems reasonable to advance diet as tolerated. She's hesitant to discharge until she is able to eat. Long-term seems like might need more aggressive constipation management, particularly since using PRN narcotic (though she does not feel this has contributed to current issues). Outpt screening colonoscopy age 40-45 considering family history of colon cancer. DL LYLES Jul 28, 2021 09:57
--- NOTE | 2021-07-28 10:52 | HP ---
DATE OF SERVICE: 07/28/2021 ADMIT DATE: 07/27/2021 REASON FOR ADMISSION TO THE HOSPITAL: Abdominal pain, possible diverticulosis with diverticulitis and possible pancreatitis. HISTORY OF PRESENT ILLNESS: The patient's location is [facility]. The patient is a 40-year-old female with history of diabetes. The patient was started on Trulicity a couple of weeks ago for diabetes and she has noticed severe abdominal pain, nausea, vomiting and tender in the abdomen, possible pancreatitis was differential diagnosis and she was also saying she was constipated, had hard to pass stools. She was having black stools, had to disimpact manually and she has also took some milk of magnesia and she has a loose stools and then again constipation, loose stools, so this is going on for 2 days and then was admitted to the hospital for further investigation and treatment. PAST MEDICAL HISTORY: She has a history of diabetes. She also has a history of migraine, anxiety, chronic back pain. PAST SURGICAL HISTORY: She had IUD. FAMILY HISTORY: Sudden cardiac , lupus and diabetes. ALLERGIES: No known allergies. SOCIAL HISTORY: Denies smoking or alcohol. She is on hydrocodone p.r.n. for chronic back problems. 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 REVIEW OF SYSTEMS: A couple of weeks ago, had problem with dizziness and lightheaded and high blood pressure. It was thought related to medications she was on Farxiga, which was stopped and symptoms improved and she has seen Cardiology. MEDICATIONS: She is on Xanax 0.5 p.r.n., aspirin 81, atorvastatin 10 mg. She was on Trulicity once a week injection, hydrocodone p.r.n. for pain. PHYSICAL EXAMINATION: GENERAL: The patient is little bit anxious. VITAL SIGNS: Temperature 98, pulse 68, respirations 16, blood pressure 109/61, 99% on room air. HEENT: Head is atraumatic. Pupils equal. Oral cavity, no congestion. NECK: Supple. Thyroid not enlarged. JVD not elevated. CHEST: Symmetrical. CARDIOVASCULAR: S1, S2. LUNGS: Clear. ABDOMEN: Soft, tender in the left lower quadrant to deep palpation. No rebound. Bowel sounds present. No mass palpable. EXTERNAL GENITALIA: No Cerna. Rectum is done in the office yesterday, no hard stool, no stool was present. EXTREMITIES: No calf tenderness, no edema. NEUROLOGIC: Moving all extremities. No focal deficits noted. LABORATORY DATA: Shows a white count of 9, hemoglobin 14, platelets 229. Electrolytes show sodium 141, potassium 3.7, chloride 104, bicarb 26, BUN 11, creatinine 0.6, glucose 128. LFTs were normal. KUB, no acute findings. Has IUD. FINAL IMPRESSION: 1. Abdominal pain. 2. Possible pancreatitis. The patient was started on Trulicity ? Could it could be a pancreatitis but amylase and lipase was normal. 3. Possible diverticulosis may be diverticulitis. PLAN: At this time, was admitted to the hospital, hydrate with IV fluids. A CT scan is ordered. GI is consulted. The patient has right now white count is normal. No fever. We will hold off on antibiotic and further recommendations to follow. GET/[facility] [place] DR: GET/thong TID: [id number] MTDD
[2021-07-28 11:00] VITALS: BP 136/71
[2021-07-28] MEDS ORDERED: BISACODYL 10 MG SUPP.RECT. PR PRN (11:00)
[2021-07-28] MEDS ORDERED: POLYETHYLENE GLYCOL 3350 17 GM PACKET. PO PRN (11:00)
[2021-07-28] MEDS ORDERED: BISACODYL 5 MG TABLET.DR. PO PRN (11:00)
--- NOTE | 2021-07-28 13:02 | RAD ---
CT ABDOMEN+PELVIS W History: Abdominal pain, nausea and vomiting. Comparison: None. Technique: CT of the abdomen and pelvis with oral and intravenous contrast. Findings: Mild dependent changes in the lung bases. The liver, gallbladder, pancreas, and adrenal glands are un remarkable. There are punctate granulomatous calcifications of the spleen. There is a hypodensity in the left kidney measuring 1.9 cm diameter with Hounsfield units measuring greater than simple fluid a nd a few dependent calcifications. There are subcentimeter hypodensities in the right kidney which ar e too small to characterize but most likely represent benign cysts. The stomach and small bowel are normal. Normal appendix. No colonic wall thickening or pericolonic in flammatory changes. The bladder is normal. Intrauterine device is within the expected position in the fundal endometrium. There is no intra-abdominal free air or free fluid. No adenopathy. Mild atherosc lerotic calcification of the aorta and iliac arteries. The soft tissues are unremarkable. There are bilateral L5 pars interarticularis defects with mild ist hmic anterolisthesis of L5 on S1. Moderate to severe disc height loss at L5-S1. Disc bulge and mild t o moderate disc height loss at L3-L4 and L4-L5. Impression: 1. No acute inflammatory findings in the abdomen and pelvis. 2. Incompletely characterized hypoattenuating cystic lesion in the left kidney which measures greate r than simple fluid and contains a few mural calcifications. Recommend renal ultrasound for further c haracterization. 3. 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 ------ Exposure: One or more of the following individualized dose reduction techniques were utilized for thi s examination: 1. Automated exposure control 2. Adjustment of the mA and/or kV according to patient size 3. Use of iterative reconstruction technique. Electronically signed by: Elijah Mullen MD (07/28/2021 12:59 PM) [id number]
[2021-07-28] MEDS ORDERED: POLY17PO52 PO (15:13)
== END 2021-07-28 15:45 | disposition home or self-care (01) | DRG 391 ==
LOC: 2 NORTH 14:42
PROVIDERS: ADMIT Internal Medicine; ATTEND Internal Medicine
DX: K57.92 Diverticulitis of intestine, part unspecified, without perforation or abscess without bleeding (principal); K85.90 Acute pancreatitis without necrosis or infection, unspecified; K59.00 Constipation, unspecified; F41.9 Anxiety disorder, unspecified; G43.909 Migraine, unspecified, not intractable, without status migrainosus; E11.9 Type 2 diabetes mellitus without complications; E78.5 Hyperlipidemia, unspecified; M43.10 Spondylolisthesis, site unspecified; K76.0 Fatty (change of) liver, not elsewhere classified; G89.29 Other chronic pain; Z88.8 Allergy status to other drugs, medicaments and biological substances; Z83.3 Family history of diabetes mellitus; Z82.49 Family history of ischemic heart disease and other diseases of the circulatory system; Z79.82 Long term (current) use of aspirin; Z82.3 Family history of stroke; Z80.0 Family history of malignant neoplasm of digestive organs
CPT/HCPCS: 36415; 74018; 74177; 80053; 82150; 82962; 83690; 85025; J1815; J7030; Q9966; Q9967; G0378